=== PATIENT | female | born 1960 | race American Indian/Alaskan Native ===

== ENCOUNTER 2023-04-21 14:45 | Emergency (ER) | payer MEDICARE, OTHER ==
[~2023-04-21] VITALS: Ht 165.1 cm; Wt 77.3 kg
[2023-04-21 14:51] VITALS: BP 165/76; PULSE 74; RESP 18; TEMP 97.1; O2SAT 98
== END 2023-04-21 15:00 | disposition home or self-care (01) ==
LOC: ER 14:45
DX: S69.92XA Unspecified injury of left wrist, hand and finger(s), initial encounter (principal); W46.0XXA Contact with hypodermic needle, initial encounter; Y93.89 Activity, other specified; Y92.89 Other specified places as the place of occurrence of the external cause; Y99.8 Other external cause status
CPT/HCPCS: 99281